=== PATIENT | male | born 1990 | race Caucasian/White ===

== ENCOUNTER 2016-08-11 08:08 | Emergency (ER) | payer SELFPAY ==
[~2016-08-11 08:08] MED LIST: ALBU17IN2 INH; CLIN1CAP5 PO; DOXY150C PO; MULTCAP PO; NAPR500T2 PO
--- NOTE | 2016-08-11 08:30 | EDDOCDS ---
Physician Documentation [facility] Name: Juan Whitlock Age: 26 yrs Sex: Male : 1990 Arrival Date: 08/11/2016 Time: 08:08 Bed Triage 1 Private MD: Disposition: 08/11/16 08:20 Discharged to Home/Self Care. Impression: Acute nasopharyngitis [common cold]. - Condition is Stable. - Discharge Instructions: Upper Respiratory Infection, Adult. - Prescriptions for Guaifenesin- DM 10-100 mg/5 mL Oral Liquid - take 5 milliliter by ORAL route every 4 hours As needed; 100 milliliter. - Medication Reconciliation form. - Follow up: Private Physician; When: Call to arrange an appointment; Reason: Recheck today's complaints, Continuance of care. - Problem is new. - Symptoms are unchanged. Historical: - Allergies: ACETAMINOPHEN (Vomit); - Home Meds: 1. Motrin 800 mg Oral tab 1 tab as needed (Last dose: 08/11/2016 05:00) - PMHx: ear cysts; - PSHx: Cysts removed from ears; Appendectomy; - Social history: Smoking status: Patient uses tobacco products, current every day smoker. No barriers to communication noted, The patient speaks fluent Italian. - Family history: Not pertinent. - : The pt / caregiver states he / she is not on anticoagulants. Home medication list is obtained from the patient. - Exposure Risk Screening:: None identified. Vital Signs: 08/11 08:15 BP 118 / 72; Pulse 90; Resp 16; Temp 100.2(O); Pulse Ox 99% on R/A; Weight 84.37 kg / dwg 186 lbs; Height 6 ft. 0 in. (182.88 cm); Pain 6/10; 08:15 Body Mass Index 25.23 (84.37 kg, 182.88 cm) dwg MDM: 08:27 Financial registration complete. mm15 Signatures: Cezar Rivera RN RN dwg Johnson, Bruce, RN RN bcj McGrath, Marlynn mm15 Victor Hugo Anderson, LESTERC PAShabnamC cc10 MTDD
--- NOTE | 2016-08-11 08:30 | EDDOCDS ---
Nurse's Notes [facility] Name: Juan Whitlock Age: 26 yrs Sex: Male : 1990 Arrival Date: 08/11/2016 Time: 08:08 Bed Triage 1 Private MD: Diagnosis: Acute nasopharyngitis [common cold] Presentation: 08/11 08:12 Presenting complaint: Patient states: Headache, sinus congestion, productive cough, dwg symptoms since last night. Adult Sepsis Screening: The patient does not have new or worsening altered mentation. Patient's respiratory rate is less than 22. Systolic blood pressure is greater than 100. Patient has a qSOFA score of 0- Negative Sepsis Screen. Suicide/Homicide risk assessment- the patient denies having any suicidal and/or homicidal ideations and does not present with any other emotional, behavioral or mental health complaints. 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 Transition of care: patient was not received from another setting of care. 08:12 Acuity: HILLARY Level 5 dwg 08:12 Method Of Arrival: Walkin/Carried/Asstd dwg Triage Assessment: 08:15 General: Appears in no apparent distress. Pain: Pain currently is 6 out of 10 on a pain dwg scale. HIV screening NA for this visit Offered previously. Historical: - Allergies: ACETAMINOPHEN (Vomit); - Home Meds: 1. Motrin 800 mg Oral tab 1 tab as needed (Last dose: 08/11/2016 05:00) - PMHx: ear cysts; - PSHx: Cysts removed from ears; Appendectomy; - Social history: Smoking status: Patient uses tobacco products, current every day smoker. No barriers to communication noted, The patient speaks fluent Croatian. - Family history: Not pertinent. - : The pt / caregiver states he / she is not on anticoagulants. Home medication list is obtained from the patient. - Exposure Risk Screening:: None identified. Screenin:26 Screening information is obtained from the patient. Fall risk: No risks identified. bcj Assistance ADL's: requires no assistance with activities of daily living. Abuse/DV Screen: The patient / caregiver reports he/she is: not in a situation that causes fear, pain or injury. Nutritional screening: No deficits noted. Advance Directives: Currently, there is no health care proxy. home support is adequate. Assessment: 08:26 General: Appears in no apparent distress, comfortable. Derm: Skin is pink, warm & dry. [facility] Vital Signs: 08:15 BP 118 / 72; Pulse 90; Resp 16; Temp 100.2(O); Pulse Ox 99% on R/A; Weight 84.37 kg; [facility] Height 6 ft. 0 in. (182.88 cm); Pain 6/10; 08:15 Body Mass Index 25.23 (84.37 kg, 182.88 cm) [facility] Vitals: 08:15 Log In Time: August 11, 2016 at 08:05. [facility] ED Course: 08:09 Patient visited by Nancy Townsend, Reg. lg 08:09 Patient moved to Waiting lg 08:14 Triage Initiated [facility] 08:16 Victor Hugo [facility] cc 08:16 Refugio Lowe MD is Attending Physician. cc10 08:16 Patient visited by Victor Hugo Anderson PA-C. cc10 08:16 Patient visited by Victor Hugo Anderson PA-C. cc 08:16 Patient moved to Triage 1 [facility] 08:26 The patient / caregiver is instructed regarding the plan of care and ED course. [facility] 08:26 No IV's were initiated during this patient's visit. No procedures done that require bcj assistance. 08:29 Patient visited by Cole Barrientos RN. j Order Results: There are currently no results for this order. Outcome: 08:20 Discharge ordered by Provider. [facility] 08:26 Discharge Assessment: patient administered narcotics - no. The following High Risk j Discharge criteria are identified: None. Discharged to home ambulatory. Condition: stable. Discharge instructions given to patient, Instructed on discharge instructions, follow up and referral plans. medication usage, diet, Prescriptions given X 1. No special radiology studies were completed. Property :Personal belongings accompany Pt. 08:29 Patient left the ED. [facility] Signatures: Cezar Rivera RN RN [facility] Cole Barrientos RN RN [facility] Nancy Townsend, Reg Reg lg Victor Hugo Anderson PA-C PA-C cc MTDD
--- NOTE | 2016-08-13 09:30 | EDDOCDS ---
Physician Documentation [facility] Name: Juan Whitlock Age: 26 yrs Sex: Male : 1990 Arrival Date: 08/11/2016 Time: 08:08 Bed Triage 1 Private MD: Disposition: 08/11/16 08:20 Discharged to Home/Self Care. Impression: Acute nasopharyngitis [common cold]. - Condition is Stable. - Discharge Instructions: Upper Respiratory Infection, Adult. - Prescriptions for Guaifenesin- DM 10-100 mg/5 mL Oral Liquid - take 5 milliliter by ORAL route every 4 hours As needed; 100 milliliter. - Medication Reconciliation form. - Follow up: Private Physician; When: Call to arrange an appointment; Reason: Recheck today's complaints, Continuance of care. - Problem is new. - Symptoms are unchanged. Historical: - Allergies: ACETAMINOPHEN (Vomit); - Home Meds: 1. Motrin 800 mg Oral tab 1 tab as needed (Last dose: 08/11/2016 05:00) - PMHx: ear cysts; - PSHx: Cysts removed from ears; Appendectomy; - Social history: Smoking status: Patient uses tobacco products, current every day smoker. No barriers to communication noted, The patient speaks fluent Hebrew. - Family history: Not pertinent. - : The pt / caregiver states he / she is not on anticoagulants. Home medication list is obtained from the patient. - Exposure Risk Screening:: None identified. Vital Signs: 08/11 08:15 BP 118 / 72; Pulse 90; Resp 16; Temp 100.2(O); Pulse Ox 99% on R/A; Weight 84.37 kg / dwg 186 lbs; Height 6 ft. 0 in. (182.88 cm); Pain 6/10; 08:15 Body Mass Index 25.23 (84.37 kg, 182.88 cm) dwg MDM: 08:27 Financial registration complete. mm15 08:33 [facility] Payment Agreement was scanned into [employer] and attached to record. mm15 17:29 T-Sheet-- Draft Copy was scanned into [employer] and attached to record. klr Signatures: Cezar Rivera RN RN dwg Cole Barrientos RN RN Heber Oliveros mm15 Victor Hugo Anderson PA-C PADaren cc10 Yuliana Mccartney The chart was reviewed and I authenticate all verbal orders and agree with the evaluation and treatment provided.Attachments: 08:33 [facility] Payment Agreement mm15 17:29 T-Sheet-- Draft Copy klr Chart Complete MTDD
--- NOTE | 2016-08-13 09:30 | EDDOCDS ---
Physician Documentation [facility] Name: Juan Whitlock Age: 26 yrs Sex: Male : 1990 Arrival Date: 08/11/2016 Time: 08:08 Bed Triage 1 Private MD: Disposition: 08/11/16 08:20 Discharged to Home/Self Care. Impression: Acute nasopharyngitis [common cold]. - Condition is Stable. - Discharge Instructions: Upper Respiratory Infection, Adult. - Prescriptions for Guaifenesin- DM 10-100 mg/5 mL Oral Liquid - take 5 milliliter by ORAL route every 4 hours As needed; 100 milliliter. - Medication Reconciliation form. - Follow up: Private Physician; When: Call to arrange an appointment; Reason: Recheck today's complaints, Continuance of care. - Problem is new. - Symptoms are unchanged. Historical: - Allergies: ACETAMINOPHEN (Vomit); - Home Meds: 1. Motrin 800 mg Oral tab 1 tab as needed (Last dose: 08/11/2016 05:00) - PMHx: ear cysts; - PSHx: Cysts removed from ears; Appendectomy; - Social history: Smoking status: Patient uses tobacco products, current every day smoker. No barriers to communication noted, The patient speaks fluent Yakut. - Family history: Not pertinent. - : The pt / caregiver states he / she is not on anticoagulants. Home medication list is obtained from the patient. - Exposure Risk Screening:: None identified. Vital Signs: 08/11 08:15 BP 118 / 72; Pulse 90; Resp 16; Temp 100.2(O); Pulse Ox 99% on R/A; Weight 84.37 kg / dwg 186 lbs; Height 6 ft. 0 in. (182.88 cm); Pain 6/10; 08:15 Body Mass Index 25.23 (84.37 kg, 182.88 cm) dwg MDM: 08:27 Financial registration complete. mm15 08:33 [facility] Payment Agreement was scanned into [employer] and attached to record. mm15 17:29 T-Sheet-- Draft Copy was scanned into [employer] and attached to record. klr Signatures: Cezar Rivera RN RN dwg Cole Barrientos RN RN Heber Oliveros mm15 Victor Hugo Anderson PA-C PADaren cc10 Yuliana Mccartney The chart was reviewed and I authenticate all verbal orders and agree with the evaluation and treatment provided.Attachments: 08:33 [facility] Payment Agreement mm15 17:29 T-Sheet-- Draft Copy klr Chart Complete MTDD
--- NOTE | 2016-08-13 09:30 | EDDOCDS ---
Nurse's Notes [facility] Name: Juan Whitlock Age: 26 yrs Sex: Male : 1990 Arrival Date: 08/11/2016 Time: 08:08 Bed Triage 1 Private MD: Diagnosis: Acute nasopharyngitis [common cold] Presentation: 08/11 08:12 Presenting complaint: Patient states: Headache, sinus congestion, productive cough, dwg symptoms since last night. Adult Sepsis Screening: The patient does not have new or worsening altered mentation. Patient's respiratory rate is less than 22. Systolic blood pressure is greater than 100. Patient has a qSOFA score of 0- Negative Sepsis Screen. Suicide/Homicide risk assessment- the patient denies having any suicidal and/or homicidal ideations and does not present with any other emotional, behavioral or mental health complaints. Status: Patient is not a service specialist or dependent. Transition of care: patient was not received from another setting of care. 08:12 Acuity: HILLARY Level 5 dwg 08:12 Method Of Arrival: Walkin/Carried/Asstd dwg Triage Assessment: 08:15 General: Appears in no apparent distress. Pain: Pain currently is 6 out of 10 on a pain dwg scale. HIV screening NA for this visit Offered previously. Historical: - Allergies: ACETAMINOPHEN (Vomit); - Home Meds: 1. Motrin 800 mg Oral tab 1 tab as needed (Last dose: 08/11/2016 05:00) - PMHx: ear cysts; - PSHx: Cysts removed from ears; Appendectomy; - Social history: Smoking status: Patient uses tobacco products, current every day smoker. No barriers to communication noted, The patient speaks fluent Indonesian. - Family history: Not pertinent. - : The pt / caregiver states he / she is not on anticoagulants. Home medication list is obtained from the patient. - Exposure Risk Screening:: None identified. Screenin:26 Screening information is obtained from the patient. Fall risk: No risks identified. bcj Assistance ADL's: requires no assistance with activities of daily living. Abuse/DV Screen: The patient / caregiver reports he/she is: not in a situation that causes fear, pain or injury. Nutritional screening: No deficits noted. Advance Directives: Currently, there is no health care proxy. home support is adequate. Assessment: 08:26 General: Appears in no apparent distress, comfortable. Derm: Skin is pink, warm & dry. [facility] Vital Signs: 08:15 BP 118 / 72; Pulse 90; Resp 16; Temp 100.2(O); Pulse Ox 99% on R/A; Weight 84.37 kg; [facility] Height 6 ft. 0 in. (182.88 cm); Pain 6/10; 08:15 Body Mass Index 25.23 (84.37 kg, 182.88 cm) [facility] Vitals: 08:15 Log In Time: August 11, 2016 at 08:05. [facility] ED Course: 08:09 Patient visited by Nancy Townsend, Reg. lg 08:09 Patient moved to Waiting lg 08:14 Triage Initiated [facility] 08:16 Victor Hugo Anderson PA-C is PHCP. [facility] 08:16 Refugio Lowe MD is Attending Physician. [facility] 08:16 Patient visited by Victor Hugo Anderson PA-C. [facility] 08:16 Patient visited by Victor Hugo Anderson PA-C. [facility] 08:16 Patient moved to Triage 1 [facility] 08:26 The patient / caregiver is instructed regarding the plan of care and ED course. [facility] 08:26 No IV's were initiated during this patient's visit. No procedures done that require bcj assistance. 08:29 Patient visited by Cole Barrientos RN. [facility] 08:33 [facility] Payment Agreement was scanned into [employer] and attached to record. mm15 17:29 T-Sheet-- Draft Copy was scanned into [employer] and attached to record. klr Order Results: There are currently no results for this order. Outcome: 08:20 Discharge ordered by Provider. [facility] 08:26 Discharge Assessment: patient administered narcotics - no. The following High Risk j Discharge criteria are identified: None. Discharged to home ambulatory. Condition: stable. Discharge instructions given to patient, Instructed on discharge instructions, follow up and referral plans. medication usage, diet, Prescriptions given X 1. No special radiology studies were completed. Property :Personal belongings accompany Pt. 08:29 Patient left the ED. [facility] Signatures: Cezar Rivera RN RN [facility] Cole Barrientos RN RN [facility] Nancy Townsend, Reg Reg lg Heber Branham mm15 Victor Hugo Anderson, PA-C PA-C cc10 Yuliana Mccartney Chart Complete MTDD
== END 2016-08-11 08:29 | disposition home or self-care (01) ==
LOC: M ED 08:08
DX: J00 Acute nasopharyngitis [common cold] (principal); Z88.6 Allergy status to analgesic agent; F17.210 Nicotine dependence, cigarettes, uncomplicated

== ENCOUNTER 2016-09-07 10:15 | Emergency (ER) | payer SELFPAY ==
[~2016-09-07] VITALS: Ht 182.9 cm; Wt 81.6 kg
[2016-09-07] MEDS ORDERED: IBUP600T26 PO (11:20)
[2016-09-07] MEDS ORDERED: AUGM875T27 PO (11:20)
[2016-09-07 11:53] VITALS: BP 126/69
== END 2016-09-07 11:55 | disposition home or self-care (01) ==
LOC: M ED 10:44
DX: K04.7 Periapical abscess without sinus (principal); F17.200 Nicotine dependence, unspecified, uncomplicated; Z88.6 Allergy status to analgesic agent

== ENCOUNTER 2020-04-20 13:56 | Emergency (ER) | payer OTHER, SELFPAY ==
[~2020-04-20] VITALS: Ht 195.6 cm; Wt 94.2 kg
[2020-04-20 13:56] VITALS: BP 121/74
[~2020-04-20 13:56] MED LIST changes: +AUGM875T28 PO; +CLIN150C14 PO; -CLIN1CAP5 PO; +IBUP-1022 PO; +NAPR-885 PO; -NAPR500T2 PO
[2020-04-20] MEDS ORDERED: [UNRECOGNIZED DRUG - REMARK] PO (14:04)
[2020-04-20] MEDS ORDERED: XANA0.5T PO (14:04)
[2020-04-20] MEDS ORDERED: DOXY100C37 PO (14:32)
== END 2020-04-20 14:40 | disposition home or self-care (01) ==
LOC: M ED 13:56
DX: H60.01 Abscess of right external ear (principal); J45.909 Unspecified asthma, uncomplicated; F41.9 Anxiety disorder, unspecified; F32.9 Major depressive disorder, single episode, unspecified; F17.200 Nicotine dependence, unspecified, uncomplicated; Z88.6 Allergy status to analgesic agent; Z91.030 Bee allergy status

== ENCOUNTER 2020-06-01 12:14 | Emergency (ER) | payer OTHER ==
[~2020-06-01] VITALS: Ht 182.9 cm; Wt 96.4 kg
[2020-06-01 12:14] VITALS: BP 145/88
[~2020-06-01 12:14] MED LIST changes: +DOXY100C37 PO; +XANA0.5T PO; +[UNRECOGNIZED DRUG - REMARK] PO
[2020-06-01] MEDS ORDERED: LIDOCAINE 2% MDV 20ML VIAL SC ONE (13:00)
[2020-06-01] MEDS ORDERED: KEFL500C17 PO (13:13)
[2020-06-01] MEDS ORDERED: CEPHALEXIN 500 MG CAP PO ONE (13:15)
== END 2020-06-01 13:30 | disposition home or self-care (01) ==
LOC: M ED 12:14
DX: H60.11 Cellulitis of right external ear (principal); L72.0 Epidermal cyst; F41.9 Anxiety disorder, unspecified; F17.200 Nicotine dependence, unspecified, uncomplicated; Z88.6 Allergy status to analgesic agent

== ENCOUNTER 2021-05-02 14:30 | Emergency (ER) | payer OTHER ==
[~2021-05-02] VITALS: Ht 182.9 cm; Wt 101.8 kg
[~2021-05-02 14:30] MED LIST changes: -CLIN150C14 PO; +CLIN150C17 PO; +DOXY-443 PO; -DOXY100C37 PO; +KEFL500C17 PO
[2021-05-02 14:31] VITALS: BP 130/84
--- OUTSIDE RECORDS SUMMARY | 2021-05-02 14:36 | CCD ---
Author Author [facility] Organization [facility] Address Unknown Phone Unavailable Support Name Relationship Address Phone JJ JAMIL Next Of Kin [address] [place] [address] KELLY GAY Next Of Kin [address] [place] [address] GET R DONE Next Of Kin [address] [place] [address] GET R DONE [employer] Next Of Kin [address] [facility] [address] [place] [address] NELLY LI Next Of Kin [address] [place] [address] [place] [address] UE Next Of Kin Unknown Unavailable NACHO LI Next Of Kin [address] [address] DIVYA LI Next Of Kin [address] [address] ERIK LI ECON [address] [address] [phone] Nelly Charlton ECON [address] [place] [address] Unavailable Nelyl Li ECON [address] [place] [address] [phone] Re-disclosure Warning The records that you are about to access may contain information from federally-assisted alcohol or drug abuse programs. If such information is present, then the following federally mandated warning applies: This information has been disclosed to you from records protected by federal confidentiality rules (42 CFR part 2). The federal rules prohibit you from making any further disclosure of this information unless further disclosure is expressly permitted by the written consent of the person to whom it pertains or as otherwise permitted by 42 CFR part 2. A general authorization for the release of medical or other information is NOT sufficient for this purpose. The Federal rules restrict any use of the information to criminally investigate or prosecute any alcohol or drug abuse patient.The records that you are about to access may contain highly sensitive health information, the redisclosure of which is protected by Article 27-F of the [facility] Public Health law. If you continue you may have access to information: Regarding HIV / AIDS; Provided by facilities licensed or operated by the [facility] Office of Mental Health; or Provided by the [facility] Office for People With Developmental Disabilities. If such information is present, then the following [facility] mandated warning applies: This information has been disclosed to you from confidential records which are protected by state law. State law prohibits you from making any further disclosure of this information without the specific written consent of the person to whom it pertains, or as otherwise permitted by law. Any unauthorized further disclosure in violation of state law may result in a fine or retirement sentence or both. A general authorization for the release of medical or other information is NOT sufficient authorization for further disc losure. Family History Family Member Name Family Member Gender Family Member Status Date o f Status Description Data Source(s) Unknown Unknown Encounters Encounter Providers Location Date Indications Data Source(s ) Unknown [address] [facility] [place] [address] 06/07/2020 12:00:00 AM EST eCW1 ([facility]) Unknown [address] [facility] [place] [address] 06/02/2020 12:00:00 AM EST eCW1 ([facility]) Unknown [address] [facility] [place] [address] 04/29/2020 12:00:00 AM EST eCW1 ([facility]) Unknown [address] [facility] [place] [address] 04/21/2020 12:00:00 AM EST eCW1 ([facility]) Immunizations Vaccine Date Status Description Data Source(s) COVID-19 VACCINE Moderna 01/17/2021 12:00:00 AM EDT completed [facility] Vaccine Series Complete: NOThis Data was Submitted to [facility] Via [facility]. Medications No Information Insurance Providers Payer name Policy type / Coverage type Policy ID Covered green party ID Covered green party's relationship to sebastian Policy Sebastian Plan Information [facility] COMM[facility] PLAN [facility] [id number] [facility] PLAN [facility] [id number] SELF PAY ONLY [id number] SP [id number] ANSI-Medicaid [id number] ANS-Medicaid [id number] ANSI-Medicaid [id number] ANSI-Medicaid [id number] ANSI-Medicaid [id number] ANSI-Medicaid [id number] ANS-Medicaid [id number] ANSI-Medicaid [id number] ANS-Medicaid [id number] ANS-Medicaid [id number] ANS-Medicaid [id number] ANS-Medicaid [id number] [facility]-Med[facility] [id number] [facility]-Medicaid [id number] SELF PAY ONLY [id number] SP [id number] SELF PAY ONLY UNAVAILABLE SP [facility]NAV [facility] O [id number] S [id number] SELF PAY UNAVAILABLE SP UNAVAILA BLE [facility] PLAN [facility] [id number] SP [id number] MEDICAID [id number] SP [id number] Problems, Conditions, and Diagnoses No Information Surgeries/Procedures No Information Results No Information Social History No Information
[2021-05-02] MEDS ORDERED: VENTAER INH (14:43)
[2021-05-02] MEDS ORDERED: FERR325T3 PO (14:43)
[2021-05-02] MEDS ORDERED: IBUP200C25 PO (14:43)
--- OUTSIDE RECORDS SUMMARY | 2021-05-02 16:36 | CCD ---
Author Author [facility] Organization [facility] Address Unknown Phone Unavailable Support Name Relationship Address Phone JJ JAMIL Next Of Kin [address] [place] [address] KELLY GAY Next Of Kin [address] [place] [address] GET R DONE Next Of Kin [address] [place] [address] GET R DONE [employer] Next Of Kin [address] [facility] [address] [place] [address] NELLY LI Next Of Kin [address] [place] [address] [place] [address] UE Next Of Kin Unknown Unavailable NACHO LI Next Of Kin [address] [address] DIVYA LI Next Of Kin [address] [address] ERIK LI ECON [address] [address] [phone] Nelly Charlton ECON [address] [place] [address] Unavailable Nelly Li ECON [address] [place] [address] [phone] Re-disclosure Warning The records that you are [...] is protected by Article 27-F of the [facility] Public Health law. If you continue you may have access to information: Regarding HIV / AIDS; Provided by facilities licensed or operated by the [facility] Office of Mental Health; or Provided by the [facility] Office for People With Developmental Disabilities. If such information is present, then the following [facility] mandated warning applies: This information has been [...] law may result in a fine or senior living sentence or both. A general authorization for the release of medical or other information is NOT sufficient authorization for further disc losure. Family History Family Member Name Family Member Gender Family Member Status Date o f Status Description Data Source(s) Unknown Unknown Encounters Encounter Providers Location Date Indications Data Source(s ) Unknown [id number] [facility] [place] [id number] 06/07/2020 12:00:00 AM EST eCW1 ([facility]) Unknown [address] [facility] [place] [id number] 06/02/2020 12:00:00 AM EST eCW1 ([facility]) Unknown [address] [facility] [place] [id number] 04/29/2020 12:00:00 AM EST eCW1 ([facility]) Unknown [address] [facility] [place] [id number] 04/21/2020 12:00:00 AM EST eCW1 ([facility]) Immunizations Vaccine Date Status Description Data Source(s) COVID-19 VACCINE Moderna 01/17/2021 12:00:00 AM EDT completed [facility] Vaccine Series Complete: NOThis Data was Submitted to [facility] Via [facility]. Medications No Information Insurance Providers Payer name Policy type / Coverage type Policy ID Covered alliance party ID Covered alliance party's relationship to sebastian Policy Sebastian Plan Information [facility]AN [facility] [id number] [facility] PLAN [facility] [id number] SELF PAY ONLY [id number] SP [id number] ANSI-Medicaid [id number] ANS-Medicaid [id number] ANSI-Medicaid [id number] ANSI-Medicaid [id number] ANSI-Medicaid [id number] ANSI-Medicaid [id number] ANS-Medicaid [id number] ANSI-Medicaid [id number] ANS-Medicaid [id number] ANS-Medicaid [id number] ANS-Medicaid [id number] ANS-Medicaid [id number] [facility]-Medicaid [id number] [facility]-Medicaid [id number] SELF PAY ONLY [id number] SP [id number] SELF PAY ONLY UNAVAILABLE SP [facility] O [id number] S [id number] SELF PAY UNAVAILABLE SP [facility]NA[facility]A [facility] [id number] SP [id number] MEDICAID [id number] SP [id number] Problems, Conditions, and Diagnoses No Information Surgeries/Procedures No Information Results No Information Social History No Information
[2021-05-02 18:02] LABS: BASO % 0.4 % (0.0-1.0); EOS # 0.2 10^3/uL (0.0-0.5); EOS % 1.6 % (0.0-3.0); HEMATOCRIT 49.4 % (42.0-52.0); HEMOGLOBIN 17.2 g/dl (13.5-17.5); LYMPH # 2.5 10^3/uL (1.5-5.0); LYMPH % 25.2 % (24.0-44.0); MEAN CORPUSCULAR HGB CONC 34.8 g/dl (32.0-36.5); MEAN CORPUSCULAR VOLUME 89.2 fl (80.0-96.0); NEUTROPHILS # 6.2 10^3/uL (1.5-8.5); NEUTROPHILS % 62.4 % (36.0-66.0); PLATELET COUNT, AUTOMATED 208 10^3/uL (150-450); RED BLOOD COUNT 5.54 10^6/uL (4.30-6.10); WHITE BLOOD COUNT 9.9 10^3/uL (4.0-10.0)
[2021-05-02] MEDS ORDERED: ISOVUE-370 76% 100ML VIAL As Ordered ONE (18:19)
--- NOTE | 2021-05-02 19:52 | REPVR ---
PROCEDURE INFORMATION: Exam: CT Neck With Contrast Exam date and time: 05/02/2021 6:25 PM Age: 30 years old Clinical indication: Condition or disease; Other: Recurrent outer ear abscess; Additional info: Attn outer ear, recurrent outer ear abscess, Dr. Yusuf request TECHNIQUE: Imaging protocol: Computed tomography images of the neck with contrast. Radiation optimization: All CT scans at this facility use at least one of these dose optimization techniques: automated exposure control; mA and/or kV adjustment per patient size (includes targeted exams where dose is matched to clinical indication); or iterative reconstruction. Contrast material: ISOVUE 370; Contrast volume: 75 ml; Contrast route: INTRAVENOUS (IV); COMPARISON: No relevant prior studies available. FINDINGS: Mastoid air cells: Clear mastoid air cells. Auditory system: There is very severe swelling of the external right ear. There is an abscess of the superior portion of the right external ear measuring 2.7 cm x 1.4 cm by 1.8 cm. There is a thickened and enhancement of the margin and fluid density within the central portion of this abscess cavity. Paranasal sinuses: Clear paranasal sinuses. Nasopharynx: Clear nasopharynx. Oropharynx: There is moderate enlargement of the tonsils bilaterally. Hypopharynx: Normal appearing hypopharynx and glottis. Larynx: Unremarkable. Normal epiglottis. Retropharyngeal space: Unremarkable. Submandibular/Parotid glands: Symmetric submandibular glands. Normal appearing parotid glands. Thyroid: Normal appearing thyroid. Lymph nodes: There are several moderate size lymph nodes right and left carotid bifurcation. Moderate-sized lymph nodes noted in the posterior triangle region the greater on the right. Trachea: Visualized trachea is unremarkable. Lungs: Clear apical portions of the lung. Bones/joints: There is no evidence of bony abnormality. Soft tissues: There is enhancement of the vertebral arteries. IMPRESSION: 2.7 x 1.4 x 1.8 cm abscess upper portion of the external right ear with diffuse severe swelling. Multiple lymph nodes right side of the neck. Electronically signed by: Carlos Alberto Shaffer On 05/02/2021 19:51:26 PM
[2021-05-02] MEDS ORDERED: BACT800T5 PO (20:24)
--- NOTE | 2021-05-03 20:12 | ED PDOC ---
Post-Departure Follow-Up radiology report faxed to Sarah Carr MD May 03, 2021 20:12
== END 2021-05-02 20:40 | disposition left against medical advice (07) ==
LOC: M ED 14:30
DX: H60.01 Abscess of right external ear (principal); J45.909 Unspecified asthma, uncomplicated; D50.9 Iron deficiency anemia, unspecified; F41.9 Anxiety disorder, unspecified; F17.200 Nicotine dependence, unspecified, uncomplicated; Z79.899 Other long term (current) drug therapy; Z88.8 Allergy status to other drugs, medicaments and biological substances; Z91.030 Bee allergy status
CPT/HCPCS: 70491; 80047; 85025; 99283; Q9967

== ENCOUNTER → 2021-05-03 | Outpatient (REF) | payer OTHER ==
[~2021-05-03] MED LIST changes: +BACT800T5 PO; +FERR325T3 PO; +IBUP200C25 PO; +VENTAER INH
== END ==
LOC: M LAB REF 16:57
PROVIDERS: ATTEND Otolaryngology
DX: H60.01 Abscess of right external ear (principal)

== ENCOUNTER 2021-10-09 18:23 | Emergency (ER) | payer OTHER ==
[~2021-10-09] VITALS: Ht 182.9 cm; Wt 103.8 kg
[~2021-10-09 18:23] MED LIST changes: -DOXY150C PO; +DOXY150C3 PO
[2021-10-09] MEDS ORDERED: BACITRACIN OINTMENT 30GM TUBE TOP STA (20:03)
[2021-10-09] MEDS ORDERED: BACI500O8 TOP (20:09)
[2021-10-09 20:19] VITALS: BP 136/86
== END 2021-10-09 20:33 | disposition home or self-care (01) ==
LOC: M ED 18:23
DX: T23.232A Burn of second degree of multiple left fingers (nail), not including thumb, initial encounter (principal); T23.131A Burn of first degree of multiple right fingers (nail), not including thumb, initial encounter; T31.0 Burns involving less than 10% of body surface; X19.XXXA Contact with other heat and hot substances, initial encounter; Y92.017 Garden or yard in single-family (private) house as the place of occurrence of the external cause; Y93.9 Activity, unspecified; Y99.9 Unspecified external cause status; J45.909 Unspecified asthma, uncomplicated; Z88.2 Allergy status to sulfonamides; Z88.6 Allergy status to analgesic agent; Z91.030 Bee allergy status; Z79.899 Other long term (current) drug therapy

== ENCOUNTER 2024-06-04 22:54 | Emergency (ER) | payer OTHER ==
[~2024-06-04] VITALS: Ht 182.9 cm; Wt 90.9 kg
[~2024-06-04 22:54] MED LIST changes: +BACI500O8 TOP; +DOXY-441 PO; -DOXY-443 PO; -DOXY150C3 PO; +DOXY150C5 PO
[2024-06-04 22:57] VITALS: BP 121/86; TEMP 98.6; O2SAT 97
[2024-06-05] MEDS ORDERED: NEOSPORIN OINT 0.9 GM PKT TOP ONE (02:10)
[2024-06-05] MEDS ORDERED: BOOSTRIX VACCINE (TETANUS/DIPHTH/ACEL. PERTUSSIS) 0.5ML SYR IM.IMMUN ONE (02:20)
[2024-06-05] MEDS: LIDOCAINE 2% MDV 20ML VIAL SC ONE (02:33)
[2024-06-05] MEDS ORDERED: MOXI1TAB PO (02:47)
[2024-06-05] MEDS ORDERED: MOXIFLOXACIN 400 MG TAB PO ONE (02:50)
== END 2024-06-05 03:47 | disposition home or self-care (01) ==
LOC: M ED 22:54
DX: S91.311A Laceration without foreign body, right foot, initial encounter (principal); Y92.019 Unspecified place in single-family (private) house as the place of occurrence of the external cause; Y93.9 Activity, unspecified; Y99.9 Unspecified external cause status; Z88.8 Allergy status to other drugs, medicaments and biological substances; Z88.2 Allergy status to sulfonamides; Z91.030 Bee allergy status; Z79.51 Long term (current) use of inhaled steroids; Z79.1 Long term (current) use of non-steroidal anti-inflammatories (NSAID); Z79.899 Other long term (current) drug therapy

== ENCOUNTER 2024-08-30 01:45 | Emergency (ER) | payer OTHER ==
[~2024-08-30] VITALS: Ht 182.9 cm; Wt 93.1 kg
[~2024-08-30 01:45] MED LIST changes: +MOXI1TAB PO
[2024-08-30 01:46] VITALS: TEMP 96.2
[2024-08-30 02:12] VITALS: BP 122/68
[2024-08-30 02:45] VITALS: O2SAT 98
== END 2024-08-30 03:27 | disposition left against medical advice (07) ==
LOC: M ED 01:45
DX: S00.81XA Abrasion of other part of head, initial encounter (principal); F10.120 Alcohol abuse with intoxication, uncomplicated; W10.9XXA Fall (on) (from) unspecified stairs and steps, initial encounter; Y90.9 Presence of alcohol in blood, level not specified; Y93.89 Activity, other specified; Y99.9 Unspecified external cause status; Y92.009 Unspecified place in unspecified non-institutional (private) residence as the place of occurrence of the external cause; F17.200 Nicotine dependence, unspecified, uncomplicated; Z88.6 Allergy status to analgesic agent; Z88.2 Allergy status to sulfonamides; Z88.1 Allergy status to other antibiotic agents